=== PATIENT | male | born 1970 | race Caucasian/White ===

== ENCOUNTER 2020-04-05 22:38 | Emergency (ER) | payer MEDICAID ==
[~2020-04-05] VITALS: Ht 172.7 cm; Wt 77.3 kg
[~2020-04-05 22:38] MED LIST: DILANTIN PO
[2020-04-06 00:26] LABS: INFLUENZA TYPE A NEGATIVE FOR TYPE A (NEGATIVE); INFLUENZA TYPE B NEGATIVE FOR TYPE B (NEGATIVE)
[2020-04-06 00:54] LABS: COVID AG,FIA SOURCE NASOPHARYNGEAL
[2020-04-06 02:25] VITALS: BP 128/74
== END 2020-04-06 02:27 | disposition home or self-care (01) ==
LOC: EMS 22:38
DX: J06.9 Acute upper respiratory infection, unspecified (principal); Z20.828 Contact with and (suspected) exposure to other viral communicable diseases
CPT/HCPCS: 87426; 87804; 71045-TC